=== PATIENT | female | born 1980 | race Caucasian/White ===

== ENCOUNTER 2023-08-18 12:05 | Emergency (ER) | payer OTHER ==
[2023-08-18 12:19] VITALS: RESP 20; BMI 35.8
[2023-08-18] MEDS ORDERED: IBUPROFEN 400 MG TABLET (FP) PO ONE ×2 (13:13→13:36)
[2023-08-18] MEDS ORDERED: ACETAMINOPHEN 500 MG TABLET (FP) PO ONE (13:13)
[2023-08-18 13:29] VITALS: BP 129/86; PULSE 88; TEMP 99.1
[2023-08-18] MEDS ORDERED: ACETAMINOPHEN 325 MG TABLET (FP) ONE (13:36)
== END 2023-08-18 14:47 | disposition home or self-care (01) ==
LOC: JER 12:05
DX: R51.9 Headache, unspecified (principal)
CPT/HCPCS: 99283-25

== ENCOUNTER 2024-07-11 16:42 | Emergency (ER) | payer OTHER ==
[2024-07-11 16:54] VITALS: BMI 35.8
[2024-07-11 17:56] LABS: BASO % 0.3 % (0-2.0); EOS % 1.2 % (0-4.5); HEMATOCRIT 22.7 % (32.4-45.2); LYMPH % 29.4 % (8-40); MCHC 28.3 g/dl (32.0-36.0); MEAN CELL VOLUME 55.9 fl (80-96); MONO % 6.4 % (3.8-10.2); NEUT % 62.7 % (42.8-82.8); PLATELET COUNT 378 10^3/uL (134-434); RBC 4.06 M/mm3 (3.60-5.2); RDW 21.9 % (11.6-15.6); WHITE BLOOD COUNT 7.4 K/mm3 (4.0-10.0)
[2024-07-11 18:08] LABS: MCH 15.8 pg (25.7-33.7)
[2024-07-11 18:09] LABS: HEMOGLOBIN 6.4 GM/dL (10.7-15.3)
[2024-07-11 18:30] LABS: INR 0.97 (0.83-1.09); POTASSIUM 3.8 mmol/L (3.5-5.1); PROTHROMBIN TIME (PATIENT) 11.2 SEC (9.7-13.0)
[2024-07-11 18:33] LABS: CALCIUM 9.2 mg/dL (8.5-10.1)
[2024-07-11 18:34] LABS: BLOOD UREA NITROGEN 6.7 mg/dL (7-18)
[2024-07-11 18:36] LABS: CREATININE 0.7 mg/dL (0.55-1.3)
[2024-07-11 18:37] LABS: BILIRUBIN,TOTAL 0.4 mg/dL (0.2-1)
[2024-07-11 18:39] LABS: TOT PROT 7.8 g/dl (6.4-8.2)
[2024-07-12 00:29] VITALS: PULSE 78; TEMP 98.7
[2024-07-12 03:48] VITALS: BP 117/69; RESP 16
== END 2024-07-12 03:53 | disposition home or self-care (01) ==
LOC: JER 16:42
DX: D64.9 Anemia, unspecified (principal); D25.9 Leiomyoma of uterus, unspecified
CPT/HCPCS: 36415; 36430; 76830-TC; 80053; 82746; 83540; 83550; 85025; 85610; 85730; 86850; 86900; 86901; 86922; 93005; 93010; 99284-25; P9058

== ENCOUNTER → 2024-11-27 | Day surgery (SDC) | payer OTHER | END | disposition home or self-care (01) | LOC: FMAMMOTONE 08:30 | PROVIDERS: ATTEND Student in an Organized Health Care Education/Training Program | PROC: 0HBU3ZX Excision of Left Breast, Percutaneous Approach, Diagnostic (ICD-10-PCS; principal; 2024-11-27) | DX: N60.12 Diffuse cystic mastopathy of left breast (principal); N64.89 Other specified disorders of breast; R92.1 Mammographic calcification found on diagnostic imaging of breast | CPT/HCPCS: 19081; 76098-TC-FY; 87899; 88305-TC; A4648 ==